=== PATIENT | female | born 1970 | race Two or more races ===

== ENCOUNTER 2020-07-06 20:39 | Inpatient (IN) | payer OTHER ==
[~2020-07-06] VITALS: Ht 157.5 cm; Wt 76.7 kg
[2020-07-06 21:05] VITALS: BP 107/49
--- NOTE | 2020-07-06 21:06 | NUR ---
"RN NOTE | ADMISSION RECEIVED PATIENT DIRECT ADMIT FROM [facility] VIA GURNEY ACCOMPANIED BY 2 STAFFS AND TRANSFERRED TO BED VIA 2 PERSON ASSIST. PT IS ALERT AND ORIENTED X4; NAURUAN SPEAKING. PATIENT ON O2 OF 3L VIA NC WITH RESPIRATIONS EVEN AND UNLABORED. COMPREHENSIVE PHYSICAL ASSESSMENT DONE; SKIN IS INTACT WITH NO WOUNDS OR SKIN ISSUE NOTED. IV LINE IS @ LA C # 20, NO RUNNING IV FLUID AT TIME OF ADMISSION. PATIENT NOTED TO BE AMBULATORY. SAFETY MEASURES IN PLACE,CALL LIGHT WITHIN REACH, WILL CONTINUE MONITOR AND ASSESS THROUGHOUT THE SHIFT. WILL SECURE MD ORDER AND CARRY OUT ACCORDINGLY."
--- NOTE | 2020-07-06 21:15 | NUR ---
RN NOTES NOTED PT'S TEMP 102 @2110. COOLING MEASURES PROVIDED ;WILL RE-EVALUATE AFTER 30 MINUTES- 1 HOUR. WILL CONTINUE TO MONITOR, INFORMED ONCALL TO SECURE FOR ANY PRN MEDS TO BE GIVEN; AWAITING RESPONSE. PILE DRIVING NOZZLEMAN MADE AWARE.
--- NOTE | 2020-07-06 21:35 | NUR ---
RN NOTES CALLED [facility] FOR YISSEL CASTILLO, TO INFORM ARRIVAL OF PATIENT DIRECT ADMISSION FROM [facility] AND TO SECURE ADMISSION ORDERS; LEFT MESSAGE TO YISSEL CASTILLO. MEAT STOCK CLERK MADE AWARE. -AWAITING FOR CALLBACK FROM YISSEL CASTILLO
[2020-07-06] MEDS ORDERED: ACET325T53 MC (21:42)
[2020-07-06] MEDS ORDERED: BENZ-13 PO (21:42)
[2020-07-06] MEDS ORDERED: ALBU18HF2 INH (21:42)
[2020-07-06] MEDS ORDERED: LEVO750T46 PO (21:42)
[2020-07-07] VITALS: BP 121/57
[2020-07-07] MEDS ORDERED: ONDANSETRON HCL/PF 4 MG/2 ML VIAL IVP PRN
[2020-07-07] MEDS ORDERED: ACETAMINOPHEN 325 MG TABLET PO PRN
[2020-07-07] MEDS ORDERED: MAG HYDROX/AL HYDROX/SIMETH 30 ML UDC PO PRN
[2020-07-07] MEDS ORDERED: HYDROCODONE/APAP 5/325MG TABLET PO PRN
[2020-07-07] MEDS ORDERED: ZOLPIDEM TARTRATE 5 MG TABLET PO PRN
[2020-07-07] MEDS ORDERED: MAGNESIUM HYDROXIDE 30 ML UDC PO PRN
[2020-07-07] MEDS ORDERED: Z GUARD REMEDY 2 OZ OINT TP PRN
[2020-07-07] MEDS: IV NS 0.9% 1,000 ML IV PRN ×2 (00:28→16:44)
[2020-07-07] MEDS ORDERED: ALBUTEROL SULFATE INH 18 GM HFA.AER.AD IH PRN (00:30)
[2020-07-07] MEDS ORDERED: BENZONATATE 100 MG CAPSULE PO PRN (00:30)
[2020-07-07] MEDS: AZITHROMYCIN 250 MG TABLET PO SCH (03:56)
[2020-07-07 04:00] VITALS: BP 133/79
[2020-07-07 04:26] LABS: BASOPHILS % (AUTO) 0.2 % (0.0-2.0); HEMATOCRIT 31 % (33-45); HEMOGLOBIN 10.3 g/dL (11.5-14.8); LYMPHOCYTES # (AUTO) 0.9 /CMM (0.8-4.8); LYMPHOCYTES % (AUTO) 7.4 % (20.0-44.0); MEAN CORPUSCULAR HGB CONC 33 g/dl (31.0-36.0); MEAN CORPUSCULAR VOLUME 80 fL (82-100); MONOCYTES # (AUTO) 0.5 /CMM (0.1-1.30); MONOCYTES % (AUTO) 3.7 % (2.0-12.0); NEUTROPHILS # (AUTO) 10.9 /CMM (1.8-8.9); NEUTROPHILS % (AUTO) 88.7 % (43.0-81.0); PLATELET COUNT (AUTO) 318 /CMM (150-450); RED BLOOD CELL COUNT(AUTO) 3.93 MIL/uL (4.0-5.2); WHITE BLOOD COUNT (AUTO) 12.3 K/uL (4.3-11.0)
[2020-07-07] MEDS ORDERED: CEFTRIAXONE 1 G VIAL ONE (04:40)
[2020-07-07] MEDS: CEFTRIAXONE 2 G in IV D5W 100 ML IV SCH (04:42)
[2020-07-07 04:45] LABS: ALBUMIN 2.3 g/dL (3.4-5.0); BILIRUBIN,TOTAL 0.4 mg/dL (0.2-1.0); CALCIUM, SERUM 8.6 mg/dL (8.5-10.1); CREATININE 0.7 mg/dL (0.6-1.3); MAGNESIUM 2.2 mg/dL (1.8-2.4); PHOSPHORUS 2.8 mg/dL (2.5-4.9); POTASSIUM 3.4 mmol/L (3.5-5.1)
[2020-07-07 04:49] LABS: THYROID STIMULATING HORMONE 1.399 uIU/mL (0.358-3.74)
[2020-07-07 05:03] LABS: D-DIMER 0.8 mg/L(FEU (0.17-0.50)
[2020-07-07 05:08] LABS: C-REACTIVE PROTEIN 30.8 mg/dL (0.0-0.9)
--- NOTE | 2020-07-07 05:13 | NUR ---
RN NOTES 0513 -received critical value from lab , s/w Zaria relayed FIBRINOGEN : 801MG/DL 0520 -communicated with oncroyce honeycutt, Flaco Adler and informed about critical value of FIBRINOGEN : 801MG/DL, verified for any order at this time. Jelena HONEYCUTT said no orders to be carried out at this time. medical housekeeper made aware.
--- NOTE | 2020-07-07 06:36 | NUR ---
RN CLOSING NOTES PATIENT REMAINS IN ROOM IN NO SIGNS OF RESPIRATORY DISTRESS. PATIENT SATURATING 97%. VITAL SIGNS WNL. SAFETY PRECAUTIONS IN PLACE AND COMFORT MEASURES RENDERED. BED IN LOWEST POSITION, CALL LIGHT WITHIN REACH, BREAKS ON, SIDE RAILS UP. ALL NEEDS ATTENDED, MEDICATIONS GIVEN SCHEDULED AND ORDERED ; SHIFT ASSESSMENT/BEDBATH/SKIN CARE DONE. PATIENT KEPT CLEAN AND DRY. WILL ENDORSE TO INCOMING SHIFT FOR MILO.
--- NOTE | 2020-07-07 07:15 | NUR ---
RN OPENING NOTE Received patient awake in bed appears calm and relaxed no signs of distress. On NC 3L tolerating well O2 sat at 97%. Patient is AOx4 Bengali Speaking. Tele monitor reading SR 80-90s. Has LAC #20 running NS @75ml/hr tolerating well. Safety measures reinforced. Call light within reach. Will cont to monitor.
[2020-07-07 08:00] VITALS: BP 125/80
[2020-07-07 08:10] LABS: ABG BASE EXCESS 3.6 mmol/L; ABG OXYGEN SATURATION 93.2 % (92.0-98.5); ABG PCO2 42.4 mmHg (35.0-45.0); ABG PH 7.439 (7.350-7.450); ABG PO2 66.5 mmHg (75.0-100.0); AaDO2 83.1 mmHg; COHb 0.3 % (0.5-1.5); MetHb 0.1 % (0.0-1.5); O2Hb 92.8 % (94.0-97.0); SITE, ABG Left Radial; VENT MODE, BG N/C 2LPM
[2020-07-07] MEDS: DEXAMETHASONE SOD PHOSPHATE 10 MG/ML VIAL IV SCH (08:31)
[2020-07-07] MEDS: PANTOPRAZOLE 40 MG TABLET.DR PO SCH (08:31)
[2020-07-07 08:39] LABS: IRON, SERUM 15 ug/dl (50-175); TOTAL IRON BINDING CAPACITY 290 ug/dl (250-450)
[2020-07-07] MEDS ORDERED: ENOXAPARIN SODIUM 40 MG/0.4 ML DISP.SYRIN SQ SCH (09:00)
[2020-07-07] MEDS ORDERED: ENOXAPARIN SODIUM 80 MG/0.8 ML DISP.SYRIN SQ SCH (09:00)
[2020-07-07] MEDS ORDERED: POTASSIUM CHLORIDE 20 MEQ TAB.PRT.SR PO ONE (10:30)
[2020-07-07 12:00] VITALS: BP 108/66
[2020-07-07 13:36] LABS: C-REACTIVE PROTEIN 40.9 mg/dL (0.0-0.9)
[2020-07-07] MEDS ORDERED: INVESTIGATIONAL MED MISC 1 EA in IV NS 0.9% 250 ML IV ONE (14:00)
[2020-07-07 14:20] LABS: BASOPHILS % (AUTO) 0.2 % (0.0-2.0); HEMATOCRIT 34 % (33-45); LYMPHOCYTES # (AUTO) 0.4 /CMM (0.8-4.8); LYMPHOCYTES % (AUTO) 3.1 % (20.0-44.0); MEAN CORPUSCULAR HGB CONC 32 g/dl (31.0-36.0); MEAN CORPUSCULAR VOLUME 80 fL (82-100); MONOCYTES # (AUTO) 0.2 /CMM (0.1-1.30); NEUTROPHILS # (AUTO) 10.9 /CMM (1.8-8.9); NEUTROPHILS % (AUTO) 94.7 % (43.0-81.0); PLATELET COUNT (AUTO) 367 /CMM (150-450); RED BLOOD CELL COUNT(AUTO) 4.21 MIL/uL (4.0-5.2); WHITE BLOOD COUNT (AUTO) 11.5 K/uL (4.3-11.0)
[2020-07-07 15:15] LABS: ALBUMIN 2.4 g/dL (3.4-5.0); BILIRUBIN,DIRECT 0.1 mg/dL (0.0-0.2); BILIRUBIN,TOTAL 0.3 mg/dL (0.2-1.0); CALCIUM, SERUM 8.6 mg/dL (8.5-10.1); CREATININE 0.7 mg/dL (0.6-1.3); POTASSIUM 3.8 mmol/L (3.5-5.1); TOTAL PROTEIN, SERUM 7.3 g/dL (6.4-8.2)
[2020-07-07 16:00] VITALS: BP 110/69
--- NOTE | 2020-07-07 16:00 | NUR ---
CONVALESCENT PLASMA FORM COMPLETED AND FAXED TO LAB. REMDESIVIR FIRST DOSE GIVEN. PT DAUGHTER WANTS TO TALK TO DOCTOR BEFORE CONSENTING TO CONVALESCENT PLASMA. PAGED DR. GEORGES.
--- NOTE | 2020-07-07 18:49 | NUR ---
RN CLOSING NOTE Patient asleep in bed appears calm and relaxed no signs of distress. On NC 3L tolerating well O2 sat at 100%. Patient is AOx4 Citizen Of [place] speaking. Tele monitor reading SR 60-65s. Has LAC #20 running NS @75ml/hr tolerating well. Safety measures reinforced. Call light within reach. Will endorse to production supervisor off shift nurse for cirilo.
--- NOTE | 2020-07-07 19:40 | NUR ---
RN OPENING NOTE RECEIVED PATIENT IN BED RESTING ALERT ORIENTED X4 VERBALLY RESPONSIVE,TURKISH SPEAKER FULL CODE,R/O FOR COVID ON DROPLET/CONTACT ISOLATION ON 3L OXYGEN VIA NASAL CANNULA,O2:92% NO SOB NOT ACUTE DISTRESS NOTED,COUGHING,IV SITE IS ON LEFT AC INTACT PATENT ON 75CC/HR NORMAL SALINE,RUNNING CALL LIGHT WITHIN REACH,IMPLEMENT SAFETY MEASURE,CONTINUE TO MONITOR.
[2020-07-07 20:00] VITALS: BP 123/77
--- NOTE | 2020-07-07 20:26 | NUR ---
RN NOTE RECEIVED A CALL FROM THE LAB PATIENT IS COVID 19 POSITIVE,CALLED HER DAUGHTER RESPONSIBLE DEMOCRAT,MADE AWARE.
--- NOTE | 2020-07-07 20:30 | NUR ---
RN NOTE SEEN O2:89% ON 3L INCREASED TO 4L/MIN VIA NASAL CANNULA.
--- NOTE | 2020-07-07 23:15 | NUR ---
RN NOTE SEEN O2:88% ON 4L,INCREASED TO 5L/MIN VIA NASAL CANNULA,CONTINUE TO MONITOR.
[2020-07-08] VITALS: BP 112/66
--- NOTE | 2020-07-08 00:45 | NUR ---
RN NOTE ACETAMINOPHEN 325 MG 2 BTO=677 MG PRN FOR MILD PAIN / GIVEN
--- NOTE | 2020-07-08 01:44 | NUR ---
RN NOTE O2:96% ON 5L/MIN DECRESED TO 4L/MIN VIA NASAL CANNULA,CONTINUE TO MONITOR
[2020-07-08] MEDS: CEFTRIAXONE 2 G in IV D5W 100 ML IV SCH (03:01)
[2020-07-08] MEDS: AZITHROMYCIN 250 MG TABLET PO SCH (03:02)
[2020-07-08 04:00] VITALS: BP 108/63
[2020-07-08 04:40] LABS: HEMATOCRIT 32 % (33-45); HEMOGLOBIN 10.4 g/dL (11.5-14.8); LYMPHOCYTES # (AUTO) 0.7 /CMM (0.8-4.8); LYMPHOCYTES % (AUTO) 6.8 % (20.0-44.0); MEAN CORPUSCULAR HGB CONC 33 g/dl (31.0-36.0); MEAN CORPUSCULAR VOLUME 81 fL (82-100); MONOCYTES # (AUTO) 0.6 /CMM (0.1-1.30); MONOCYTES % (AUTO) 6.1 % (2.0-12.0); NEUTROPHILS # (AUTO) 8.3 /CMM (1.8-8.9); NEUTROPHILS % (AUTO) 87.1 % (43.0-81.0); PLATELET COUNT (AUTO) 400 /CMM (150-450); RED BLOOD CELL COUNT(AUTO) 3.96 MIL/uL (4.0-5.2); WHITE BLOOD COUNT (AUTO) 9.6 K/uL (4.3-11.0)
[2020-07-08 04:57] LABS: CALCIUM, SERUM 8.4 mg/dL (8.5-10.1); CREATININE 0.7 mg/dL (0.6-1.3); MAGNESIUM 2.4 mg/dL (1.8-2.4); PHOSPHORUS 2.4 mg/dL (2.5-4.9); POTASSIUM 3.7 mmol/L (3.5-5.1)
[2020-07-08 05:08] LABS: ALBUMIN 2.1 g/dL (3.4-5.0); BILIRUBIN,DIRECT 0.1 mg/dL (0.0-0.2); BILIRUBIN,TOTAL 0.2 mg/dL (0.2-1.0); TOTAL PROTEIN, SERUM 6.9 g/dL (6.4-8.2)
[2020-07-08 05:22] LABS: C-REACTIVE PROTEIN 30.9 mg/dL (0.0-0.9)
--- NOTE | 2020-07-08 06:45 | NUR ---
RN CLOSING NOTE PATIENT REMAINS ON ALERT ORIENTED X4 VERBALLY RESPONSIVE UZBEK SPEAKING ONLY,FULL CODE,ON TELE ,ON MONITORING FOR COVID 19 POSITIVE,AND DROPLET/CONTACT ISOLATION,ON 4L OXYGEN VIA NASAL CANNULA,O2:95% HR IS SINUS RHYTHM 60S,IV SITE IS ON LEFT AC INTACT PATENT,ON 75CC/HR NORMAL SALINE,ALL DUE MEDS GIVEN MD ORDERED,KEPT CLEAN AND DRY ALL THE TIME,KEPT CALL LIGHT WITHIN REACH,ALL NEEDS MET,ENDORSE NEXT COMING SHIFT FOR CONTINUATION OF CARE.
--- NOTE | 2020-07-08 07:00 | NUR ---
SOCIAL SERVICE DIRECTOR OPENING RECEIVED PT ASLEEP BUT EASILY AROUSABLE. A/O X 4. NC 3L WITH 99% SATURATION. NO ACUTE RESPIRATORY DISTRESS AT THIS TIME. TELE MONITOR SHOWING SR. LEFT AC #20, PATENT AND FLUSHED. NS AT 75CC/HR. SAFETY MEASURES OBSERVED. CALL LIGHT WITHIN REACH, BED LOCKED AND AT LOWEST POSITION
[2020-07-08] MEDS: IV NS 0.9% 1,000 ML IV PRN (07:01)
[2020-07-08 08:00] VITALS: BP 107/69
[2020-07-08] MEDS: DEXAMETHASONE SOD PHOSPHATE 10 MG/ML VIAL IV SCH (08:39)
[2020-07-08] MEDS: PANTOPRAZOLE 40 MG TABLET.DR PO SCH (08:40)
[2020-07-08] MEDS: ENOXAPARIN SODIUM 40 MG/0.4 ML DISP.SYRIN SQ SCH (08:40)
[2020-07-08 08:56] LABS: D-DIMER 0.88 mg/L(FEU (0.17-0.50)
--- NOTE | 2020-07-08 09:00 | NUR ---
MANAGER FREELANCE CALLED DAUGHTER REGARDING CONVALESCENT PLASMA. DAUGHTER AGREED TO PROCEED WITH CONVALESCENT PLASMA.
--- NOTE | 2020-07-08 11:00 | NUR ---
ANESTHESIOLOGY PHYSICIAN PT SIGNED CONSENT FOR CONVALESCENT PLASMA. ALL FORMS AND PAPERS ARE COMPLETED. CALLED LAB AND SAID THAT CONVALESCENT PLASMA IS NOT YET AVAILABLE BUT WILL CALL ONCE ITS AVAILABLE
[2020-07-08 12:00] VITALS: BP 108/65
[2020-07-08] MEDS ORDERED: K PHOS NEUTRAL 250 MG TABLET PO ONE (12:00)
[2020-07-08 13:59] LABS: HEMATOCRIT 32 % (33-45); HEMOGLOBIN 10.5 g/dL (11.5-14.8); LYMPHOCYTES # (AUTO) 0.7 /CMM (0.8-4.8); LYMPHOCYTES % (AUTO) 6.9 % (20.0-44.0); MEAN CORPUSCULAR HGB CONC 32 g/dl (31.0-36.0); MEAN CORPUSCULAR VOLUME 81 fL (82-100); MONOCYTES # (AUTO) 0.6 /CMM (0.1-1.30); MONOCYTES % (AUTO) 5.7 % (2.0-12.0); NEUTROPHILS # (AUTO) 9.3 /CMM (1.8-8.9); NEUTROPHILS % (AUTO) 87.4 % (43.0-81.0); PLATELET COUNT (AUTO) 460 /CMM (150-450); RED BLOOD CELL COUNT(AUTO) 4.01 MIL/uL (4.0-5.2); WHITE BLOOD COUNT (AUTO) 10.6 K/uL (4.3-11.0)
[2020-07-08] MEDS: INVESTIGATIONAL MED MISC 1 EA in IV NS 0.9% 250 ML IV SCH (14:06)
[2020-07-08 15:30] LABS: ALBUMIN 2.2 g/dL (3.4-5.0); BILIRUBIN,DIRECT 0.1 mg/dL (0.0-0.2); BILIRUBIN,TOTAL 0.2 mg/dL (0.2-1.0); CALCIUM, SERUM 8.6 mg/dL (8.5-10.1); CREATININE 0.7 mg/dL (0.6-1.3); POTASSIUM 3.9 mmol/L (3.5-5.1); TOTAL PROTEIN, SERUM 6.9 g/dL (6.4-8.2)
[2020-07-08] MEDS: SOD FERRIC GLUC 125 MG in IV NS 0.9% 100 ML IV SCH (15:51)
[2020-07-08 16:00] VITALS: BP 116/48
--- NOTE | 2020-07-08 18:55 | NUR ---
ASBESTOS REMOVER CLOSING\ NO SIGNIFICANT CHANGES AT THIS TIME. NO ACUTE RESPIRATORY DISTRESS NOTED. PT REMAINS STABLE. WILL ENDORSE TO ONCOMING SHIFT FOR MILO
--- NOTE | 2020-07-08 19:30 | NUR ---
RN OPENING NOTE RECEIVED PATIENT IN BED RESTING ALERT ORIENTED X4 FULL CODE, THAI SPEAKER ONLY, VERBALLY RESPONSIVE ON TELE MONITORING,COVID 19 POSITIVE ON MONITORING FOR DROPLET/CONTACT ISOLATION,ON 4L LITER OXYGEN 90% VIA NASAL CANNULA,IV SITE IS ON LEFT AC INTACT PATENT ON 75 CC/HR NORMAL SALINE RUNNING,IMPLEMENT SAFETY MEASURE,KEEP CALL LIGHT WITHIN REACH,CONTINUE TO MONITOR.
[2020-07-08 20:00] VITALS: BP 120/61
[2020-07-09] VITALS (19 sets, daily range): BP systolic 113–136; BP diastolic 60–78
--- NOTE | 2020-07-09 03:40 | NUR ---
RN NOTE CONVALESCENT PLASMA STARED AT 0110 AND DONE AT 0324 DURING TRANSFUSION VITAL SIGN IN WNL NO REACTION NOTED AFTER DONE PATIENT CALLED AND SAID HAD RASHS ALL OVER THE BODY AFTER ASSESSMENT CALLED DR ALICEA AND RECEIVED ORDER FOR BENADRYL 50MG IV INJECTION ONE TIME ONLY NOTED AND CARRIED OUT
[2020-07-09] MEDS ORDERED: diphenhydrAMINE HCL 50 MG/ML VIAL ONE (03:57)
[2020-07-09] MEDS ORDERED: diphenhydrAMINE HCL 50 MG CAPSULE PO ONE (04:00)
[2020-07-09] MEDS: AZITHROMYCIN 250 MG TABLET PO SCH (04:01)
[2020-07-09] MEDS: CEFTRIAXONE 2 G in IV D5W 100 ML IV SCH (04:01)
--- NOTE | 2020-07-09 05:00 | NUR ---
RN NOTE SEEN PATIENT O2:85% ON 4L OXYGEN INCREASED TO 4L/MIN OXYGEN VIA NASAL CANNULA CONTINUE TO MONITOR
[2020-07-09] MEDS: IV NS 0.9% 1,000 ML IV PRN ×2 (05:56→21:43)
--- NOTE | 2020-07-09 06:55 | NUR ---
RN CLOSING NOTE PATIENT REMAINS ALERT ORIENTED X4 VERBALLY RESPONSIVE FRENCH SPEAKER ONLY,FULL CODE, COVID 19 POSITIVE, MONITORING FOR DROPLET/CONTACT ISOLATION,ON 5L OXYGEN VIA NASAL CANNULA, O2:95%,IV SITE IS ON LEFT AC PATENT INTACT,NORMAL SALINE RUNNING 75CC/HR,ALL DUE MEDS GIVEN MD ORDERED,PATIENT SHOWED REACTION TO CONVALESCENT PLASMA,AFTER BENADRYL NO RASH NOTED,KEPT CALL LIGHT WITHIN REACH,KEPT CLEAN AND DRY ALL THE TIME,ENDORSE NEXT COMING SHIFT FOR CONTINUATION OF CARE.
--- NOTE | 2020-07-09 07:30 | NUR ---
AUTOMOBILE REPOSSESSOR/KIERRA OPENING NOTE RECEIVED PT IN BED AWAKE, ALERT AND ORIENTED X4. PT IS BELGIAN SPEAKING. PT IS ABLE TO MAKE HER NEEDS KNOWN. PT IS ON OXYGEN 2L VIA N/C SATURATING AT 97% AT THIS TIME. PT HAS A LAC 20' INTACT, PATENT AND FLUSHING WELL. PT IS FULL CODE AND IN STABLE CONDITION AT THIS TIME. ALL SAFETY MEASURES TAKEN AND IMPLEMENTED PER COVID 19. PT'S SKIN IS INTACT. CALL LIGHT WITHIN REACH AND FUNCTIONING. BED LOCKED AND IN LOWEST POSITION. WILL CONTINUE TO MONITOR AND ASSESS PT.
[2020-07-09] MEDS: PANTOPRAZOLE 40 MG TABLET.DR PO SCH (08:02)
[2020-07-09] MEDS: DEXAMETHASONE SOD PHOSPHATE 10 MG/ML VIAL IV SCH (08:02)
[2020-07-09] MEDS: ENOXAPARIN SODIUM 40 MG/0.4 ML DISP.SYRIN SQ SCH (08:03)
[2020-07-09] MEDS: INVESTIGATIONAL MED MISC 1 EA in IV NS 0.9% 250 ML IV SCH (14:28)
[2020-07-09 14:29] LABS: EOSINOPHILS % (AUTO) 0.1 % (0.0-6.0); HEMATOCRIT 34 % (33-45); LYMPHOCYTES # (AUTO) 0.8 /CMM (0.8-4.8); LYMPHOCYTES % (AUTO) 6.5 % (20.0-44.0); MEAN CORPUSCULAR HGB CONC 32 g/dl (31.0-36.0); MEAN CORPUSCULAR VOLUME 81 fL (82-100); MONOCYTES # (AUTO) 0.5 /CMM (0.1-1.30); MONOCYTES % (AUTO) 4.1 % (2.0-12.0); NEUTROPHILS # (AUTO) 11.7 /CMM (1.8-8.9); NEUTROPHILS % (AUTO) 89.3 % (43.0-81.0); PLATELET COUNT (AUTO) 591 /CMM (150-450); RED BLOOD CELL COUNT(AUTO) 4.26 MIL/uL (4.0-5.2); WHITE BLOOD COUNT (AUTO) 13.1 K/uL (4.3-11.0)
[2020-07-09 15:15] LABS: ALBUMIN 2.3 g/dL (3.4-5.0); BILIRUBIN,DIRECT 0.1 mg/dL (0.0-0.2); BILIRUBIN,TOTAL 0.2 mg/dL (0.2-1.0); CALCIUM, SERUM 8.3 mg/dL (8.5-10.1); CREATININE 0.8 mg/dL (0.6-1.3); POTASSIUM 3.7 mmol/L (3.5-5.1); TOTAL PROTEIN, SERUM 6.9 g/dL (6.4-8.2)
[2020-07-09] MEDS: SOD FERRIC GLUC 125 MG in IV NS 0.9% 100 ML IV SCH (16:04)
--- NOTE | 2020-07-09 19:30 | NUR ---
REGIONAL MERCHANDISING MANAGER/CLOSING NOTE PT IS CURRENTLY IN BED AWAKE, ALERT AND ORIENTED X4. NO ACUTE DISTRESS OR SOB NOTED AT THIS TIME. PT IS ON OXYGEN 5L VIA N/C SATURATING AT 98% AT THIS TIME. PT IS ON TELE MONITORING WITH HR 54 AT THIS TIME. PT HAS LAC 20' INTACT AND PATENT. ALL NEEDS MED WITH HELP OF J2EE APPLICATION DEVELOPER. PT IS FULL CODE AND IN STABLE CONDITION AT THIS TIME. CALL LIGHT WITHIN REACH AND FUNCTIONING. WILL ENDORSE TO NEXT SHIFT NURSE FOR MILO.
--- NOTE | 2020-07-09 19:30 | NUR ---
RN OPENING NOTE RECEIVED PATIENT IN BED RESTING ALERT ORIENTED X4 VERBALLY RESPONSIVE,SALVADOREAN SPEAKER ONLY,FULL CODE COVID 19 POSITIVE ON 5L OXYGEN 97% MONITORING FOR DROPLET/CONTACT ISOLATION,IV SITE IS ON LEFT AC 75CC/HR NORMAL SALINE RUNNING,CALL LIGHT WITH REACH,IMPLEMENT SAFETY MEASURE CONTINUE TO MONITOR
[2020-07-10] VITALS: BP 108/56
[2020-07-10] MEDS: CEFTRIAXONE 2 G in IV D5W 100 ML IV SCH (03:47)
[2020-07-10] MEDS: AZITHROMYCIN 250 MG TABLET PO SCH (03:48)
[2020-07-10 04:00] VITALS: BP 111/52
[2020-07-10 04:38] LABS: HEMATOCRIT 32 % (33-45); HEMOGLOBIN 10.5 g/dL (11.5-14.8); LYMPHOCYTES # (AUTO) 1.7 /CMM (0.8-4.8); LYMPHOCYTES % (AUTO) 13.6 % (20.0-44.0); MEAN CORPUSCULAR HGB CONC 33 g/dl (31.0-36.0); MEAN CORPUSCULAR VOLUME 80 fL (82-100); MONOCYTES % (AUTO) 7.5 % (2.0-12.0); NEUTROPHILS # (AUTO) 10.1 /CMM (1.8-8.9); NEUTROPHILS % (AUTO) 78.9 % (43.0-81.0); PLATELET COUNT (AUTO) 528 /CMM (150-450); RED BLOOD CELL COUNT(AUTO) 4.01 MIL/uL (4.0-5.2); WHITE BLOOD COUNT (AUTO) 12.8 K/uL (4.3-11.0)
[2020-07-10 04:47] LABS: ALBUMIN 2.3 g/dL (3.4-5.0); BILIRUBIN,DIRECT 0.1 mg/dL (0.0-0.2); BILIRUBIN,TOTAL 0.3 mg/dL (0.2-1.0); CALCIUM, SERUM 8.3 mg/dL (8.5-10.1); CREATININE 0.7 mg/dL (0.6-1.3); MAGNESIUM 2.3 mg/dL (1.8-2.4); PHOSPHORUS 2.7 mg/dL (2.5-4.9); POTASSIUM 3.4 mmol/L (3.5-5.1); TOTAL PROTEIN, SERUM 6.3 g/dL (6.4-8.2)
--- NOTE | 2020-07-10 07:25 | NUR ---
RN OPENING NOTE: Patient in bed. Awake, alert and oriented x4. Mostly yi-speaking and able to communicate with nurses through yi-speaking staff on duty. Isolation precaution for COVID-[address] On 5lpm of humidified o2 via NC being tolerated well, saturation @ 95%. Tele monitor showing sinus bradycardia with sinus rhythm in the 60s per report. IV site clean, dry, patent and intact. IV infusion of NS @ 75mls/hr being tolerated well. No pain reported by patient. Call light in reach. Bed locked, low and at semi-wilson's position. Side rails up x3. Safety ensured and observed. Will continue to monitor.
--- NOTE | 2020-07-10 07:29 | NUR ---
RN CLOSING NOTE PATIENT REMAINS IN STABLE CONDITION REMAINS ALERT ORIENTED X4 VERBALLY RESPONSIVE NOT SIGNIFICANT CHANGES NOTED COVID 19 POSITIVE,IV IS IN LEFT AC INTACT PATENT 0.9% NORMAL SALINE 75CC/HR RUNNING ALL DUE MEDS GIVEN MD ORDERED,KEPT CLEAN AND DRY ALL THE TIME,ALL NEEDS MET.ENDORSE NEXT COMING SHIFT FOR CONTINUATION OF CARE.
[2020-07-10 08:00] VITALS: BP 131/47
[2020-07-10] MEDS: PANTOPRAZOLE 40 MG TABLET.DR PO SCH (08:00)
[2020-07-10] MEDS: DEXAMETHASONE SOD PHOSPHATE 10 MG/ML VIAL IV SCH (10:00)
[2020-07-10] MEDS ORDERED: POTASSIUM CHLORIDE 20 MEQ TAB.PRT.SR PO SCH (11:00)
[2020-07-10] MEDS: ENOXAPARIN SODIUM 40 MG/0.4 ML DISP.SYRIN SQ SCH (11:03)
[2020-07-10 12:00] VITALS: BP 99/55
[2020-07-10] MEDS: INVESTIGATIONAL MED MISC 1 EA in IV NS 0.9% 250 ML IV SCH (13:30)
[2020-07-10 13:41] LABS: C-REACTIVE PROTEIN 6.8 mg/dL (0.0-0.9)
[2020-07-10] MEDS: SOD FERRIC GLUC 125 MG in IV NS 0.9% 100 ML IV SCH (14:34)
[2020-07-10 16:00] VITALS: BP 118/52
--- NOTE | 2020-07-10 19:38 | NUR ---
Rn closing note: No acute changes noted on shift. Patient remains in bed. Awake, alert and oriented x4. Mostly slovenian-speaking and able to communicate with nurses through slovenian-speaking staff on duty. Isolation precaution for COVID-[address] On 5lpm of humidified o2 via NC being tolerated well, saturation @ 95%. Tele monitor showing sinus bradycardia with sinus rhythm in the 60s per report. IV site clean, dry, patent and intact. IV infusion of NS @ 75mls/hr being tolerated well. No pain reported by patient. Call light in reach. Bed locked, low and at semi-wilson's position. Side rails up x3. Safety ensured and observed. All due medications given. Treatment given as ordered. Endorsed to oncoming shift for MILO.
--- NOTE | 2020-07-10 19:40 | NUR ---
RN OPENING NOTE PATIENT IN BED RESTING ALERT ORIENTED X4 FULL CODE,COVID 19 POSITIVE MONITORING FOR DROPLET/CONTACT ISOLATION,ON 5L OXYGEN VIA NASAL CANNULA O2:96% NO SOB NOT ACUTE DISTRESS AT THIS TIME,IV SITE IS ON LEFT AC INTACT PATENT 0.9% NS RUNNING 75CC/HR,IMPLEMENT SAFETY MEASURE,CALL LIGHT WITHIN REACH,SIDE RAILS UPX3 CONTINUE TO MONITOR.
[2020-07-10 20:00] VITALS: BP 106/50
[2020-07-10] MEDS: IV NS 0.9% 1,000 ML IV PRN (20:24)
[2020-07-11] VITALS: BP 114/57
[2020-07-11] MEDS: CEFTRIAXONE 2 G in IV D5W 100 ML IV SCH (03:44)
[2020-07-11 04:00] VITALS: BP 118/62
[2020-07-11 06:22] LABS: BASOPHILS % (AUTO) 0.1 % (0.0-2.0); HEMATOCRIT 34 % (33-45); HEMOGLOBIN 10.7 g/dL (11.5-14.8); LYMPHOCYTES # (AUTO) 1.5 /CMM (0.8-4.8); MEAN CORPUSCULAR HGB CONC 32 g/dl (31.0-36.0); MEAN CORPUSCULAR VOLUME 81 fL (82-100); MONOCYTES # (AUTO) 0.8 /CMM (0.1-1.30); MONOCYTES % (AUTO) 7.3 % (2.0-12.0); NEUTROPHILS # (AUTO) 8.7 /CMM (1.8-8.9); NEUTROPHILS % (AUTO) 78.6 % (43.0-81.0); PLATELET COUNT (AUTO) 535 /CMM (150-450); RED BLOOD CELL COUNT(AUTO) 4.15 MIL/uL (4.0-5.2); WHITE BLOOD COUNT (AUTO) 11.1 K/uL (4.3-11.0)
[2020-07-11 06:57] LABS: CREATINE KINASE, TOTAL 29 U/L (26-192); FERRITIN 459 ng/mL (8-388)
--- NOTE | 2020-07-11 07:06 | NUR ---
RN CLOSING NOTE PATIENT REMAINS ON ALERT ORIENTED X4 FULL CODE COVID POSITIVE,NO SOB NOT ACUTE DISTRESS NOTED,ON 5L OXYGEN VIA NASAL CANNULA 96%,ON IV HYDRATION 75CC/HR IV SITE IS ON LEFT AC INTACT PATENT,ALL DUE MEDS GIVEN MD ORDERED,KEPT CLEAN AND DRY ALL THE TIME,KEPT CALL LIGHT WITHIN REACH,ALL NEEDS MET,ENDORSE NEXT COMING SHIFT FOR CONTINUATION OF CARE.
[2020-07-11 07:10] LABS: ALBUMIN 2.4 g/dL (3.4-5.0); BILIRUBIN,DIRECT 0.1 mg/dL (0.0-0.2); BILIRUBIN,TOTAL 0.2 mg/dL (0.2-1.0); CALCIUM, SERUM 8.4 mg/dL (8.5-10.1); CREATININE 0.7 mg/dL (0.6-1.3); MAGNESIUM 2.3 mg/dL (1.8-2.4); POTASSIUM 3.6 mmol/L (3.5-5.1); TOTAL PROTEIN, SERUM 6.5 g/dL (6.4-8.2)
--- NOTE | 2020-07-11 07:20 | NUR ---
RN OPENING NOTE Received patient awake in bed appears calm and relaxed HOB elevated on NC 5L tolerating well no signs of distress. AO x4 South Sudanese speaking knows a little bit of Sudanese. Noted with LAC #18 and R Wrist #20 flushes well running NS @ 75ml/hr. Safety measures reinforced. Call light within reach. Side rails up x2. Will cont to monitor.
[2020-07-11 08:00] VITALS: BP 116/62
[2020-07-11] MEDS: DEXAMETHASONE SOD PHOSPHATE 10 MG/ML VIAL IV SCH (09:18)
[2020-07-11] MEDS: PANTOPRAZOLE 40 MG TABLET.DR PO SCH (09:18)
[2020-07-11] MEDS: ENOXAPARIN SODIUM 40 MG/0.4 ML DISP.SYRIN SQ SCH (09:29)
--- NOTE | 2020-07-11 11:30 | NUR ---
SEEN BY YVONNE
[2020-07-11 12:00] VITALS: BP 110/65
[2020-07-11] MEDS: IV NS 0.9% 1,000 ML IV PRN (13:53)
[2020-07-11] MEDS: SOD FERRIC GLUC 125 MG in IV NS 0.9% 100 ML IV SCH (14:18)
[2020-07-11] MEDS: INVESTIGATIONAL MED MISC 1 EA in IV NS 0.9% 250 ML IV SCH (15:08)
[2020-07-11 16:00] VITALS: BP 108/55
[2020-07-11] MEDS ORDERED: IBUPROFEN 400 MG TABLET PO PRN (16:30)
[2020-07-11] MEDS ORDERED: IBUPROFEN 600 MG TABLET PO PRN (16:30)
--- NOTE | 2020-07-11 19:32 | NUR ---
PATIENT IN BED NO SIGNS OF DISTRESS. ENDORSED TO MILL BEAM FITTER NURSE.
[2020-07-11 20:00] VITALS: BP 127/79
--- NOTE | 2020-07-11 20:00 | NUR ---
RELIGION TEACHER NOTE RECEIVED PT RESTING IN BED. AAO X 4. BULGARIAN SPEAKING. ISOLATION PRECAUTIONS IN PLACE FOR POSITIVE COVID. ON TELE MONITOR, PT SINUS MARÍA 44. NO SOB OR DISTRESS NOTED. PT DENIES PAIN AT THIS TIME. O2 VIA NC AT 5L, TOLERATING WELL. O2 SAT AT 100%. VSS. PT IS AMBULATORY. IVF NS AT 75 INFUSING AT LEFT AC #20, NO S/S OF INFILTRATION NOTED. HOB ELEVATED. CALL LIGHT WITHIN REACH. WILL CONTINUE TO CLOSELY MONITOR.
--- NOTE | 2020-07-11 21:11 | NUR ---
STATION MECHANIC APPRENTICE NOTE PT REQUESTING FOR SLEEPING MED. TALKED WITH PT AND HER DAUGHTER THAT PATIENTS HR DROPS WHEN SLEEPING AND NEEDS TO WAKE HER UP. DTR AND PATIENT DECIDED NOT TO TAKE SLEEPING MED AT THIS TIME.
--- NOTE | 2020-07-11 21:56 | NUR ---
MERCHANDISE PRESENTATION ASSOCIATE NOTE PT SHOW NO DISTRESS OR DISCOMFORT. NO SOB. ONLY HEART RATE DROPS DOWN IN MID 30'S BP WNL. DR VIGIL INFORMED REGARDING PT IS BRADYCARDIC HR GOES DOWN TO 35, PER YARITZA PERDUE, METAL CONTAINER MAKER. DR HARLEY ALSO INFORMED PER NO NEW ORDER CONTINUE TO MONITOR.
--- NOTE | 2020-07-11 23:22 | NUR ---
FINANCIAL ANALYST ACCOUNTANT NOTE NOTED PT IV SITE IS LEAKING ON LEFT AC. D/C'D IV LINE AND SECURED WITH 2X2 GAUZE. NO BLEEDING NOTED. INSERTED NEW LINE GAUGE 22 ON THE RIGHT HAND WITH GOOD BACKFLOW OF BLOOD AND RESUMED IVF NS @ 75ML/HR. NO S/S OF INFILTRATION NOTED. WILL CONTINUE TO MONITOR.
[2020-07-12] VITALS (7 sets, daily range): BP systolic 96–139; BP diastolic 46–69
--- NOTE | 2020-07-12 03:24 | NUR ---
MS RN NOTE PT IS RESTING COMFORTABLY IN BED AT THIS TIME. SINUS MARÍA 39 ON THE TELE MONITOR. STILL ON 5L O2 VIA NC, TOLERATING WELL. SATURATING AT 100. NO SOB OR DISTRESS NOTED. WILL CONTINUE TO MONITOR.
[2020-07-12] MEDS: CEFTRIAXONE 2 G in IV D5W 100 ML IV SCH (04:28)
[2020-07-12] MEDS: IV NS 0.9% 1,000 ML IV PRN ×2 (05:24→22:56)
[2020-07-12 06:22] LABS: BASOPHILS % (AUTO) 0.1 % (0.0-2.0); HEMATOCRIT 33 % (33-45); HEMOGLOBIN 10.7 g/dL (11.5-14.8); LYMPHOCYTES # (AUTO) 1.4 /CMM (0.8-4.8); LYMPHOCYTES % (AUTO) 12.1 % (20.0-44.0); MEAN CORPUSCULAR HGB CONC 32 g/dl (31.0-36.0); MEAN CORPUSCULAR VOLUME 81 fL (82-100); MONOCYTES # (AUTO) 0.7 /CMM (0.1-1.30); MONOCYTES % (AUTO) 6.3 % (2.0-12.0); NEUTROPHILS # (AUTO) 9.5 /CMM (1.8-8.9); NEUTROPHILS % (AUTO) 81.5 % (43.0-81.0); PLATELET COUNT (AUTO) 536 /CMM (150-450); RED BLOOD CELL COUNT(AUTO) 4.11 MIL/uL (4.0-5.2); WHITE BLOOD COUNT (AUTO) 11.7 K/uL (4.3-11.0)
[2020-07-12 06:51] LABS: ALBUMIN 2.5 g/dL (3.4-5.0); BILIRUBIN,DIRECT 0.1 mg/dL (0.0-0.2); BILIRUBIN,TOTAL 0.3 mg/dL (0.2-1.0); CALCIUM, SERUM 8.4 mg/dL (8.5-10.1); CREATININE 0.7 mg/dL (0.6-1.3); POTASSIUM 3.5 mmol/L (3.5-5.1); TOTAL PROTEIN, SERUM 6.4 g/dL (6.4-8.2)
--- NOTE | 2020-07-12 07:04 | NUR ---
LOADER NOTE PT SLEPT INTERMITTENTLY THROUGHOUT THE NIGHT. ON TELE MONITOR SB, HR 34. LOWEST HR FOR THE SHIFT WAS 31. DOCTOR CRICKET MADE AWARE DURING THE NIGHT. NO SOB NO DISTRESS OR DISCOMFORT DURING THE SHIFT. PT DENIES ANY PAIN. IVF NS @75ML/HR INFUSING WELL. NO S/S OF INFILTRATION. PT WAS ABLE TO VOID 5-6 TIMES DURING THE NIGHT WITH MINIMAL ASSISTANCE, AMBULATES WITH STEADY GAIT. O2 SAT AT 100% ON 5L O2 VIA NC. SIDE RAILS UP X2. CALL LIGHT WITHIN REACH. VSS. WILL ENDORSE TO DAY SHIFT NURSE FOR CONTINUITY OF CARE.
--- NOTE | 2020-07-12 07:37 | NUR ---
EQUAL OPPORTUNITY OFFICER/ KIERRA OPENING NOTE RECEIVED PT IN BED AWAKE, ALERT AND ORIENTED X4. PT IS WOLOF SPEAKING AND ABLE TO MAKE HER NEEDS KNOWN. PT IS ON OXYGEN 5L VIA N/C SATURATING AT 98% AT THIS TIME. PT IS ON TELE MONITORING WITH SB HR 35 NOTED AT THIS TIME. (MD AWARE AND ORDERED TO JUST MONITOR PT). PT'S SKIN IS INTACT AND ABLE TO AMBULATE INDEPENDENTLY TO THE RESTROOM. PT HAS A RIGHT HAND 22' INTACT, PATENT AND FLUSHING WELL. ALL SAFETY MEASURES AND PRECAUTIONS TAKEN AND IMPLEMENTED PER COVID 10. CALL LIGHT WITHIN REACH AND FUNCTIONING. BED LOCKED AND IN LOWEST POSITION. WILL CONTINUE TO MONITOR AND ASSESS PT.
[2020-07-12] MEDS: DEXAMETHASONE SOD PHOSPHATE 10 MG/ML VIAL IV SCH (08:27)
[2020-07-12] MEDS: PANTOPRAZOLE 40 MG TABLET.DR PO SCH (08:27)
[2020-07-12] MEDS: ENOXAPARIN SODIUM 40 MG/0.4 ML DISP.SYRIN SQ SCH (08:30)
--- NOTE | 2020-07-12 09:58 | NUR ---
7TH GRADE TEACHER/KIERRA NOTE PT IS IN STABLE CONDITION AT THIS TIME. ALL NEEDS MET. WILL CONTINUE TO MONITOR AND ASSESS PT.
[2020-07-12 10:36] LABS: BAND % (MANUAL) 2 % (0.0-5.0); LYMPHOCYTES % (MANUAL) 8 % (16-48); MONOCYTES % (MANUAL) 6 % (0-11.0); MYELOCYTES % 2 % (0-0); NEUTROPHILS % (MANUAL) 82 (42-76)
[2020-07-12] MEDS: SOD FERRIC GLUC 125 MG in IV NS 0.9% 100 ML IV SCH (15:32)
--- NOTE | 2020-07-12 18:23 | NUR ---
HOT FRAME TENDER/KIERRA CLOSING NOTE PT IS CURRENTLY IN BED ON HER PHONE AWAKE, ALERT AND ORIENTED X4. PT IS ABLE TO MAKE HER NEEDS KNOWN. PT IS BULGARIAN SPEAKING. PT IS ON 5L OF OXYGEN 5L VIA N/C SATURATING AT 97% AT THIS TIME. PT IS ON TELE MONITORING WITH SR HR 43 NOTED AT THIS TIME. PT IS ABLE TO USE THE BED SIDE COMMODE WITHOUT ASSISTANCE. PT HAS A RIGHT HAND 22' INTACT, PATENT AND FLUSHING WELL. PT KEPT DRY CLEAN AND COMFORTABLE. ALL SAFETY MEASURES TAKEN AND IMPLEMENTED THROUGH OUT SHIFT PER COVID 19. CALL LIGHT WITHIN REACH AND FUNCTIONING. WILL ENDORSE TO NEXT SHIFT NURSE FOR MILO.
--- NOTE | 2020-07-12 19:42 | NUR ---
RELIEF CHARGE NURSE OPENING NOTES PATIENT AWAKE IN BED. A/OX4. PRIMARY LANGUAGE SYRIAN, ABLE TO SPEAK LITTLE NIGERIEN. ON 5L NC; PATIENT DENIES ANY SOB; BREATHING IS EVEN AND UNLABORED. NO C/O PAIN AT THIS TIME. TELE MONITOR READING SINUS MARÍA, HEART RATE 43. IV PRESENT ON RIGHT HAND, SIZE 22, INTACT & PATENT WITH NS RUNNING AT 75 ML/HR. SAFETY MEASURES IN PLACE PATIENT'S NEEDS MET. BED LOCKED, HOB ELEVATED, SIDE RAILS X2, CALL LIGHT WITHIN REACH. WILL CONTINUE TO MONITOR.
[2020-07-12] MEDS ORDERED: BACITRACIN 50000 UNITS/VIAL ONE (21:11)
[2020-07-12] MEDS ORDERED: BUPIVACAINE 0.5 % PF 150 MG/30 ML VIAL ONE (21:11)
[2020-07-13] VITALS (8 sets, daily range): BP systolic 100–127; BP diastolic 53–66
[2020-07-13] MEDS: PANTOPRAZOLE 40 MG TABLET.DR PO SCH (06:36)
--- NOTE | 2020-07-13 06:58 | NUR ---
SEISMIC PLOTTER CLOSING NOTES PATIENT AWAKE IN BED. A/OX4. NO ADVERSE EVENTS DURING SHIFT. ON 5L NC; PATIENT DENIES ANY SOB; BREATHING IS EVEN AND UNLABORED. NO C/O PAIN AT THIS TIME. TELE MONITOR READING SINUS MARÍA, HEART RATE 46. IV PRESENT ON RIGHT HAND, SIZE 22, INTACT & PATENT WITH NS RUNNING AT 75 ML/HR. SAFETY MEASURES IN PLACE PATIENT'S NEEDS MET. BED LOCKED, HOB ELEVATED, SIDE RAILS X2, CALL LIGHT WITHIN REACH. WILL ENDORSE TO DAY SHIFT RN PLAN OF CARE.
[2020-07-13 07:45] LABS: BASOPHILS % (AUTO) 0.2 % (0.0-2.0); EOSINOPHILS % (AUTO) 0.1 % (0.0-6.0); HEMATOCRIT 34 % (33-45); HEMOGLOBIN 10.9 g/dL (11.5-14.8); LYMPHOCYTES # (AUTO) 1.7 /CMM (0.8-4.8); LYMPHOCYTES % (AUTO) 14.6 % (20.0-44.0); MEAN CORPUSCULAR HGB CONC 32 g/dl (31.0-36.0); MEAN CORPUSCULAR VOLUME 81 fL (82-100); MONOCYTES # (AUTO) 0.7 /CMM (0.1-1.30); MONOCYTES % (AUTO) 6.1 % (2.0-12.0); NEUTROPHILS # (AUTO) 9.3 /CMM (1.8-8.9); PLATELET COUNT (AUTO) 522 /CMM (150-450); RED BLOOD CELL COUNT(AUTO) 4.25 MIL/uL (4.0-5.2); WHITE BLOOD COUNT (AUTO) 11.8 K/uL (4.3-11.0)
[2020-07-13 07:55] LABS: CALCIUM, SERUM 8.2 mg/dL (8.5-10.1); CREATININE 0.8 mg/dL (0.6-1.3); POTASSIUM 3.5 mmol/L (3.5-5.1)
--- NOTE | 2020-07-13 08:00 | NUR ---
PRODUCTION SUPERVISOR OFF SHIFT NOTES PATIENT IN BED RESTING NO SOB OR ACUTE DISTRESS NOTED. PATIENT ON 5L OF OXYGEN VIA NASAL CANNULA. PERIPHERAL IV INTACT PATENT. SAFETY MEASURES IN PLACE. WILL CONTINUE TO MONITOR.
[2020-07-13] MEDS: DEXAMETHASONE SOD PHOSPHATE 10 MG/ML VIAL IV SCH (08:57)
[2020-07-13] MEDS: ENOXAPARIN SODIUM 40 MG/0.4 ML DISP.SYRIN SQ SCH (08:58)
[2020-07-13 11:03] LABS: LYMPHOCYTES % (MANUAL) 13 % (16-48); MONOCYTES % (MANUAL) 6 % (0-11.0); MYELOCYTES % 3 % (0-0); NEUTROPHILS % (MANUAL) 78 (42-76)
[2020-07-13 14:00] LABS: ABG BASE EXCESS 0.6 mmol/L; ABG OXYGEN SATURATION 98.6 % (92.0-98.5); ABG PCO2 35.4 mmHg (35.0-45.0); ABG PH 7.453 (7.350-7.450); ABG PO2 130.4 mmHg (75.0-100.0); AaDO2 150.2 mmHg; COHb 0.3 % (0.5-1.5); MetHb 0.2 % (0.0-1.5); O2Hb 98.1 % (94.0-97.0); SITE, ABG Right Radial
--- NOTE | 2020-07-13 18:44 | NUR ---
INVESTOR RELATIONS COORDINATOR NOTES PATIENT IN BED RESTING NO SOB OR ACUTE DISTRESS NOTED. PATIENTS O2 WAS DECREASED TO 3L VIA NASAL CANNULA WITH SATURATION AT 98-100%. ALL DUE MEDICATIONS ADMINISTERED. ALL NEEDS MET. WILL ENDORSE CARE TO PM SHIFT.
--- NOTE | 2020-07-13 19:15 | NUR ---
DISTRIBUTION SYSTEMS SERVICEPERSON: Received report from Kezia MEHTA. A/O X 4, on 3L oxygen via nc , respirations even and unlabored, denies any pain or discomfort. Per pulmo, titrate oxygen till 2L. Pt is covid positive, ppe utilized with n95 and face shield. IV access patent and flushing well, infusing with ns at 75ml/hr. On tele monitoring Sinus bradycardia hr 50. Per report, do not give ambien as pt heart rate dropped to low 30's last night, md aware. HR on 40's when sleeping. All communication translated in georgian with the help of georgian speaking stack clerk. Safety precautions for fall initiated, call light in reach, will continue monitoring pt.
[2020-07-13] MEDS: IV NS 0.9% 1,000 ML IV PRN (21:14)
--- NOTE | 2020-07-13 22:00 | NUR ---
rn notes: provided pt with snacks, able to ate 1 cup of jello and drink 1 box of orange juice. no n/v noted. also, assisted pt to the bathroom.
[2020-07-14] VITALS (8 sets, daily range): BP systolic 93–131; BP diastolic 49–73
--- NOTE | 2020-07-14 01:00 | NUR ---
RN NOTES: PT'S HR NOTED TO BE LOW 37, PT SLEEPING. WENT TO PT'S ROOM TO CHECK ON PT, PT AROUSABLE/RESPONSIVE, A/O X4, ON 3L OXYGEN, DENIES ANY CHEST APIN HEAD ACHE OR DIZZINESS/LIGHTHEADEDNESS. ALL COMMUNICATION TRANSLATED IN EQUATORIAL GUINEAN USING EQUATORIAL GUINEAN SPEAKING HOME HEALTH CARE RESPIRATORY THERAPIST. EPIC MADE AWARE OF LOW HR EVENT. NO NEW ORDERS RECEIVED. WILL CONTINUE MONITORING PT.
[2020-07-14 07:19] LABS: CALCIUM, SERUM 8.3 mg/dL (8.5-10.1); CREATININE 0.7 mg/dL (0.6-1.3); POTASSIUM 3.6 mmol/L (3.5-5.1)
--- NOTE | 2020-07-14 07:28 | NUR ---
End of shift report: Pt remains on 3l oxygen via nc, denies any sob throughout the shift. Iv access remains patent and flushing well, infusing with ivf as ordered. No s/s of iv infiltration noted. Remains on sinus bradycardia hr 52. Noted dry cough, offered cough medication but pt refused. Spoked with pt's daughter, provided with update,a ll questions answered based on recent labs, imaging, plan of care of pt. PLAN OF CARE: Oxygen titration to 2L, continue anticoagulation for dvt prophylaxis. Safety precautions for fall remains engaged, call light in reach, will endorse to day rn for continuity of care.
[2020-07-14 07:32] LABS: BASOPHILS % (AUTO) 0.1 % (0.0-2.0); HEMATOCRIT 36 % (33-45); HEMOGLOBIN 11.4 g/dL (11.5-14.8); LYMPHOCYTES # (AUTO) 1.7 /CMM (0.8-4.8); LYMPHOCYTES % (AUTO) 13.2 % (20.0-44.0); MEAN CORPUSCULAR HGB CONC 32 g/dl (31.0-36.0); MEAN CORPUSCULAR VOLUME 81 fL (82-100); MONOCYTES # (AUTO) 0.9 /CMM (0.1-1.30); MONOCYTES % (AUTO) 6.7 % (2.0-12.0); NEUTROPHILS # (AUTO) 10.6 /CMM (1.8-8.9); PLATELET COUNT (AUTO) 524 /CMM (150-450); RED BLOOD CELL COUNT(AUTO) 4.37 MIL/uL (4.0-5.2); WHITE BLOOD COUNT (AUTO) 13.3 K/uL (4.3-11.0)
--- NOTE | 2020-07-14 08:00 | NUR ---
Patient in stable condition , IV fluid running as ordered. O2 titrated to 2L , saturation above 96%. Safety measures observed . Will continue to monitor .
[2020-07-14] MEDS: ENOXAPARIN SODIUM 40 MG/0.4 ML DISP.SYRIN SQ SCH (08:23)
[2020-07-14] MEDS: PANTOPRAZOLE 40 MG TABLET.DR PO SCH (08:23)
[2020-07-14] MEDS: DEXAMETHASONE SOD PHOSPHATE 10 MG/ML VIAL IV SCH (08:23)
[2020-07-14 09:49] LABS: LYMPHOCYTES % (MANUAL) 15 % (16-48); MONOCYTES % (MANUAL) 2 % (0-11.0); NEUTROPHILS % (MANUAL) 83 (42-76)
--- NOTE | 2020-07-14 10:50 | NUR ---
Patient seen by Blake SOFIA. Family updated on plan of care.
[2020-07-14] MEDS: IV NS 0.9% 1,000 ML IV PRN (14:43)
--- NOTE | 2020-07-14 18:29 | NUR ---
Pt remains stable on 2l oxygen via nc, denies any discomfort. Iv fluid infusing as ordered. No s/s of iv infiltration noted. Remains on sinus bradycardia hr 43-55. Patient will be d/c home tomorrow in am with low flow oxygen. Safety precautions remains engaged, call light in reach, will endorse to night court magistrate RN for continuity of care.
--- NOTE | 2020-07-14 19:45 | NUR ---
RN OPENING NOTES PATIENT RECEIVED RESTING IN BED A/O X 4. ON 2L OF O2 WITH BREATHING EVEN AND UNLABORED, NO SOB NOTED. NO SIGN OF ACUTE DISTRESS. NO COMPLAINTS OF PAIN OR DISCOMFORT. TELE MONITOR READING SR 60. IV LOCATED ON L WRIST #22 RUNNING NS @ 75 ML/HR. SAFETY PRECAUTIONS IN PLACE WIT BED IN LOWEST POSITION, CALL LIGHT WITHIN REACH, BREAKS ON, SIDE RAILS UP. WILL CONTINUE TO MONITOR THROUGHOUT THE SHIFT.
[2020-07-15] VITALS: BP 122/68
[2020-07-15] MEDS: IV NS 0.9% 1,000 ML IV PRN (03:43)
[2020-07-15 04:00] VITALS: BP 132/67
[2020-07-15 06:56] LABS: BASOPHILS % (AUTO) 0.1 % (0.0-2.0); EOSINOPHILS % (AUTO) 0.4 % (0.0-6.0); HEMATOCRIT 35 % (33-45); HEMOGLOBIN 11.3 g/dL (11.5-14.8); LYMPHOCYTES # (AUTO) 2.4 /CMM (0.8-4.8); LYMPHOCYTES % (AUTO) 20.7 % (20.0-44.0); MEAN CORPUSCULAR HGB CONC 32 g/dl (31.0-36.0); MEAN CORPUSCULAR VOLUME 82 fL (82-100); MONOCYTES # (AUTO) 0.7 /CMM (0.1-1.30); NEUTROPHILS # (AUTO) 8.4 /CMM (1.8-8.9); NEUTROPHILS % (AUTO) 72.8 % (43.0-81.0); PLATELET COUNT (AUTO) 463 /CMM (150-450); RED BLOOD CELL COUNT(AUTO) 4.31 MIL/uL (4.0-5.2); WHITE BLOOD COUNT (AUTO) 11.5 K/uL (4.3-11.0)
--- NOTE | 2020-07-15 07:33 | NUR ---
RN CLOSING NOTES PATIENT RESTING IN BED A/O X 4. ON 2L OF O2 WITH BREATHING EVEN AND UNLABORED, NO SOB NOTED. NO SIGN OF ACUTE DISTRESS. NO COMPLAINTS OF PAIN OR DISCOMFORT. TELE MONITOR READING SR 77. IV LOCATED ON L WRIST #22 RUNNING NS @ 75 ML/HR. SAFETY PRECAUTIONS IN PLACE WIT BED IN LOWEST POSITION, CALL LIGHT WITHIN REACH, BREAKS ON, SIDE RAILS UP. ALL NEEDS ATTENDED TO. WILL ENDORSE TO ONCOMING SHIFT ABOUT MILO.
[2020-07-15 08:00] VITALS: BP 120/70
[2020-07-15 08:33] LABS: CALCIUM, SERUM 8.6 mg/dL (8.5-10.1); CREATININE 0.8 mg/dL (0.6-1.3); POTASSIUM 4.2 mmol/L (3.5-5.1)
[2020-07-15 08:34] VITALS: BP 120/70
[2020-07-15] MEDS: DEXAMETHASONE SOD PHOSPHATE 10 MG/ML VIAL IV SCH (08:46)
[2020-07-15] MEDS: PANTOPRAZOLE 40 MG TABLET.DR PO SCH (08:46)
[2020-07-15] MEDS: ENOXAPARIN SODIUM 40 MG/0.4 ML DISP.SYRIN SQ SCH (08:47)
[2020-07-15] MEDS ORDERED: METH4TAB3 PO (11:39)
[2020-07-15] MEDS ORDERED: ALBU18HF2 INH (11:39)
[2020-07-15] MEDS ORDERED: DEXA4TAB PO (11:39)
[2020-07-15 12:00] VITALS: BP_SYST 106; BP_SYST 120; BP_DIAS 52; BP_DIAS 70
--- NOTE | 2020-07-15 14:32 | NUR ---
rn notes patient discharged at this time. VSS, iv lines removed. picked up by her family member. covid positive and was given instructions how to handle it. No further questions.
== END 2020-07-15 21:31 | disposition home or self-care (01) | DRG 137 ==
LOC: ICU 20:39 → TELE1 07-10 08:39 → TELE2 07-12 13:54
PROVIDERS: ADMIT Hospitalist; ATTEND Nurse Practitioner Acute Care
PROC: 30233N1 Transfusion of Nonautologous Red Blood Cells into Peripheral Vein, Percutaneous Approach (ICD-10-PCS; principal; 2020-07-09)
DX: U07.1 COVID-19 (principal); J12.89 Other viral pneumonia; D50.9 Iron deficiency anemia, unspecified; R79.82 Elevated C-reactive protein (CRP); D72.829 Elevated white blood cell count, unspecified; E87.6 Hypokalemia; E88.09 Other disorders of plasma-protein metabolism, not elsewhere classified; J96.01 Acute respiratory failure with hypoxia; Z79.51 Long term (current) use of inhaled steroids; Z79.899 Other long term (current) drug therapy; R74.0 Nonspecific elevation of levels of transaminase and lactic acid dehydrogenase [LDH]; E66.9 Obesity, unspecified; E44.0 Moderate protein-calorie malnutrition; K76.0 Fatty (change of) liver, not elsewhere classified; Z68.30 Body mass index [BMI] 30.0-30.9, adult
CPT/HCPCS: 36415; 36600; 71045-TC; 76700-TC; 80048-TC; 80053-TC; 80061-TC; 80076-TC; 82550-TC; 82728-TC; 82803-TC; 83540-TC; 83615-TC; 83735-TC; 84100-TC; 84443-TC; 85025-TC; 85378-TC; 85385-TC; 85396; 85610-TC; 85730-TC; 86140-TC; 86850-TC; 87081-TC; 97116-TC; 97530-TC; G0378; J0696; J1100; J1200; J1650; J2916; J3490; J7030; J7050; J7060; P9017-BL; Q0163; U0003-CS